=== PATIENT | male | born 1940 | race Caucasian/White ===

== ENCOUNTER 2016-11-22 08:00 | Outpatient (CLI) | payer MEDICARE, OTHER | END 2016-11-22 08:01 | disposition home or self-care (01) | DX: I48.91 Unspecified atrial fibrillation (principal); Z79.01 Long term (current) use of anticoagulants ==

== ENCOUNTER 2016-12-20 07:33 | Outpatient (CLI) | payer MEDICARE, OTHER | END 2016-12-20 07:34 | disposition home or self-care (01) | DX: I48.91 Unspecified atrial fibrillation (principal); Z79.01 Long term (current) use of anticoagulants ==

== ENCOUNTER 2017-01-17 11:05 | Outpatient (CLI) | payer MEDICARE, OTHER | END 2017-01-17 11:06 | disposition home or self-care (01) | DX: E11.9 Type 2 diabetes mellitus without complications (principal); I48.91 Unspecified atrial fibrillation; Z79.01 Long term (current) use of anticoagulants ==

== ENCOUNTER 2017-01-24 08:00 | Outpatient (CLI) | payer MEDICARE, OTHER | END 2017-01-24 08:01 | disposition home or self-care (01) | DX: I48.91 Unspecified atrial fibrillation (principal); Z79.01 Long term (current) use of anticoagulants ==

== ENCOUNTER 2017-02-16 07:34 | Outpatient (CLI) | payer MEDICARE, OTHER | END 2017-02-16 07:35 | disposition home or self-care (01) | DX: I48.91 Unspecified atrial fibrillation (principal); Z79.01 Long term (current) use of anticoagulants ==

== ENCOUNTER 2017-03-16 07:35 | Outpatient (CLI) | payer MEDICARE, OTHER | END 2017-03-16 07:36 | disposition home or self-care (01) | DX: I48.91 Unspecified atrial fibrillation (principal); Z79.01 Long term (current) use of anticoagulants ==

== ENCOUNTER 2017-04-12 07:34 | Outpatient (CLI) | payer MEDICARE, OTHER | END 2017-04-12 07:35 | disposition home or self-care (01) | LOC: LAB.N 07:34 | PROVIDERS: ATTEND Internal Medicine | DX: I48.91 Unspecified atrial fibrillation (principal); Z79.01 Long term (current) use of anticoagulants | CPT/HCPCS: 85610 ==

== ENCOUNTER 2017-05-07 07:46 | Outpatient (CLI) | payer MEDICARE, OTHER ==
[2017-05-07 14:59] LABS: HEMOGLOBIN A1C 0.7 g/dL
== END 2017-05-07 07:47 | disposition home or self-care (01) ==
LOC: LAB.N 07:46
PROVIDERS: ATTEND Internal Medicine
DX: E11.65 Type 2 diabetes mellitus with hyperglycemia (principal); I48.91 Unspecified atrial fibrillation; Z79.01 Long term (current) use of anticoagulants
CPT/HCPCS: 36415; 83036; 85610

== ENCOUNTER 2017-05-29 07:33 | Outpatient (CLI) | payer MEDICARE, OTHER | END 2017-05-29 23:59 | disposition home or self-care (01) | LOC: LAB.N 07:33 | PROVIDERS: ATTEND Internal Medicine | DX: I48.91 Unspecified atrial fibrillation (principal) | CPT/HCPCS: 85610 ==

== ENCOUNTER 2017-06-26 13:11 | Outpatient (CLI) | payer MEDICARE, OTHER | END 2017-06-26 13:12 | disposition home or self-care (01) | LOC: RT 13:11 | PROVIDERS: ATTEND Internal Medicine | DX: R06.00 Dyspnea, unspecified (principal) | CPT/HCPCS: 94010 ==

== ENCOUNTER 2017-06-27 07:30 | Outpatient (CLI) | payer MEDICARE, OTHER | END 2017-06-27 07:31 | LOC: LAB.N 07:30 | PROVIDERS: ATTEND Internal Medicine | DX: I48.91 Unspecified atrial fibrillation (principal); Z79.01 Long term (current) use of anticoagulants | CPT/HCPCS: 85610 ==

== ENCOUNTER 2017-07-03 07:36 | Outpatient (CLI) | payer MEDICARE, OTHER | END 2017-07-03 07:37 | disposition home or self-care (01) | LOC: LAB.N 07:36 | PROVIDERS: ATTEND Internal Medicine | DX: I48.91 Unspecified atrial fibrillation (principal); Z79.01 Long term (current) use of anticoagulants | CPT/HCPCS: 85610 ==

== ENCOUNTER 2017-07-17 20:18 | Outpatient (CLI) | payer MEDICARE, OTHER | END 2017-07-17 20:19 | disposition home or self-care (01) | LOC: LAB.N 20:18 | PROVIDERS: ATTEND Internal Medicine | DX: I48.91 Unspecified atrial fibrillation (principal) | CPT/HCPCS: 85610 ==

== ENCOUNTER 2017-08-02 07:31 | Outpatient (CLI) | payer MEDICARE, OTHER | END 2017-08-02 07:32 | disposition home or self-care (01) | LOC: LAB.N 07:31 | PROVIDERS: ATTEND Internal Medicine | DX: I48.91 Unspecified atrial fibrillation (principal); Z79.01 Long term (current) use of anticoagulants | CPT/HCPCS: 85610 ==

== ENCOUNTER 2017-08-30 15:24 | Outpatient (CLI) | payer MEDICARE, OTHER ==
[2017-08-30 13:24] LABS: BASOPHILS % (AUTO) 0.8 %; EOSINOPHILS # (AUTO) 0.2 10^3/uL (0.0-0.7); EOSINOPHILS % (AUTO) 3.4 %; HCT - HEMATOCRIT 40.6 % (42.0-52.0); HGB - HEMOGLOBIN 14.1 g/dL (14.0-18.0); LYMPHOCYTES # (AUTO) 1.2 10^3/uL (1.5-3.5); LYMPHOCYTES % (AUTO) 21.7 %; MEAN CORPUSCULAR HEMOGLOBIN 30.9 pg (27.0-31.0); MEAN CORPUSCULAR HGB CONC 34.6 g/dL (32.0-36.0); MEAN CORPUSCULAR VOLUME 89.1 fL (80.0-94.0); MEAN PLATELET VOLUME 9.3 fL (7.4-11.4); MONOCYTES # (AUTO) 0.5 10^3/uL (0.0-1.0); MONOCYTES % (AUTO) 8.4 %; NEUTROPHILS # (AUTO) 3.6 10^3/uL (1.5-6.6); NEUTROPHILS % (AUTO) 65.7 %; NUCLEATED RED BLOOD CELLS AUTO 0.1 /100WBC; RED BLOOD COUNT 4.56 10^6/uL (4.70-6.10); RED CELL DISTRIBUTION WIDTH 14.5 % (12.0-15.0); UNCORRECTED WHITE BLOOD COUNT 5.5 x10^3/uL; WHITE BLOOD COUNT 5.5 x10^3/uL (4.8-10.8)
[2017-08-30 14:18] LABS: HEMOGLOBIN A1C 0.87 g/dL
[2017-08-30 14:25] LABS: ALBUMIN/GLOBULIN RATIO 1.9 (1.0-2.2); BILIRUBIN,TOTAL 2.1 mg/dL (0.2-1.0); BUN - BLOOD UREA NITROGEN 33 mg/dL (6-20); CALCIUM 9.6 mg/dL (8.5-10.3); CARBON DIOXIDE - CO2 26 mmol/L (21-32); CHLORIDE 100 mmol/L (101-111); CHOL/HDL RATIO 3.6 (<5.0); CHOLESTEROL 100 mg/dL; CREATININE 1.2 mg/dL (0.6-1.2); GFR - MDRD 59 (>89); GLUCOSE 150 mg/dL (70-100); HDL CHOLESTEROL 28 mg/dL; LDL/HDL RATIO 1.8 (<3.6); POTASSIUM 3.8 mmol/L (3.5-5.0); SODIUM 135 mmol/L (135-145); TOTAL PROTEIN 7.2 g/dL (6.7-8.2); TRIGLYCERIDES 113 mg/dL; VLDL CHOLESTEROL 23 mg/dL
[2017-09-04 07:57] LABS: TEST RESULT REPORT
== END 2017-08-30 15:25 | disposition home or self-care (01) ==
LOC: LAB.N 15:24
PROVIDERS: ATTEND Internal Medicine
DX: Z00.00 Encounter for general adult medical examination without abnormal findings (principal); I25.10 Atherosclerotic heart disease of native coronary artery without angina pectoris; I10 Essential (primary) hypertension; E11.9 Type 2 diabetes mellitus without complications; I48.91 Unspecified atrial fibrillation; Z12.5 Encounter for screening for malignant neoplasm of prostate; R89.9 Unspecified abnormal finding in specimens from other organs, systems and tissues
CPT/HCPCS: 36415; 80053; 80061; 81599; 83036; 84154; 85025; 85610; G0103; 84153

== ENCOUNTER 2017-09-27 07:34 | Outpatient (CLI) | payer MEDICARE, OTHER | END 2017-09-27 07:35 | disposition home or self-care (01) | LOC: LAB.N 07:34 | PROVIDERS: ATTEND Internal Medicine | DX: I48.91 Unspecified atrial fibrillation (principal); Z79.01 Long term (current) use of anticoagulants | CPT/HCPCS: 85610 ==

== ENCOUNTER 2017-10-30 08:00 | Outpatient (CLI) | payer MEDICARE, OTHER | END 2017-10-30 08:01 | disposition home or self-care (01) | LOC: LAB.N 08:00 | PROVIDERS: ATTEND Internal Medicine | DX: I48.91 Unspecified atrial fibrillation (principal); Z79.01 Long term (current) use of anticoagulants | CPT/HCPCS: 85610 ==

== ENCOUNTER 2017-11-14 08:00 | Outpatient (CLI) | payer MEDICARE, OTHER | END 2017-11-14 08:01 | disposition home or self-care (01) | LOC: LAB.N 08:00 | PROVIDERS: ATTEND Internal Medicine | DX: I48.91 Unspecified atrial fibrillation (principal); Z79.01 Long term (current) use of anticoagulants | CPT/HCPCS: 85610 ==

== ENCOUNTER 2018-01-04 10:23 | Outpatient (CLI) | payer MEDICARE, OTHER ==
[2018-01-04 11:16] LABS: HB2 TOTAL 15.2 g/dL; HEMOGLOBIN A1C 0.75 g/dL; HEMOGLOBIN A1C % 6.7 % (4.6-6.2)
== END 2018-01-04 10:24 | disposition home or self-care (01) ==
LOC: LAB 10:23
PROVIDERS: ATTEND Internal Medicine
DX: E11.9 Type 2 diabetes mellitus without complications (principal); I48.91 Unspecified atrial fibrillation; Z79.01 Long term (current) use of anticoagulants
CPT/HCPCS: 36415; 83036; 85610

== ENCOUNTER 2018-01-30 08:00 | Outpatient (CLI) | payer MEDICARE, OTHER | END 2018-01-30 08:01 | disposition home or self-care (01) | LOC: LAB.N 08:00 | PROVIDERS: ATTEND Internal Medicine | DX: I48.91 Unspecified atrial fibrillation (principal); Z79.01 Long term (current) use of anticoagulants | CPT/HCPCS: 85610 ==

== ENCOUNTER 2018-02-22 07:38 | Outpatient (CLI) | payer MEDICARE, OTHER | END 2018-02-22 07:39 | disposition home or self-care (01) | LOC: LAB.N 07:38 | PROVIDERS: ATTEND Internal Medicine | DX: I48.91 Unspecified atrial fibrillation (principal); Z79.01 Long term (current) use of anticoagulants | CPT/HCPCS: 85610 ==

== ENCOUNTER 2018-03-29 14:46 | Outpatient (CLI) | payer MEDICARE, OTHER ==
[2018-03-29 19:17] LABS: HB2 TOTAL 15.2 g/dL; HEMOGLOBIN A1C 0.71 g/dL; HEMOGLOBIN A1C % 6.4 % (4.6-6.2)
== END 2018-03-29 14:47 | disposition home or self-care (01) ==
LOC: LAB.N 14:46
PROVIDERS: ATTEND Internal Medicine
DX: I48.91 Unspecified atrial fibrillation (principal); E11.9 Type 2 diabetes mellitus without complications; Z79.01 Long term (current) use of anticoagulants; Z79.899 Other long term (current) drug therapy
CPT/HCPCS: 36415; 83036; 85610

== ENCOUNTER 2018-04-25 07:35 | Outpatient (CLI) | payer MEDICARE, OTHER | END 2018-04-25 07:36 | disposition home or self-care (01) | LOC: LAB.N 07:35 | PROVIDERS: ATTEND Internal Medicine | DX: I48.91 Unspecified atrial fibrillation (principal); Z79.01 Long term (current) use of anticoagulants | CPT/HCPCS: 85610 ==

== ENCOUNTER 2018-05-23 07:34 | Outpatient (CLI) | payer MEDICARE, OTHER | END 2018-05-23 07:35 | LOC: LAB.N 07:34 | PROVIDERS: ATTEND Internal Medicine | DX: I48.91 Unspecified atrial fibrillation (principal); Z79.01 Long term (current) use of anticoagulants | CPT/HCPCS: 85610 ==

== ENCOUNTER 2018-06-21 07:40 | Outpatient (CLI) | payer MEDICARE, OTHER | END 2018-06-21 07:41 | disposition home or self-care (01) | LOC: LAB.N 07:40 | PROVIDERS: ATTEND Internal Medicine | DX: I48.91 Unspecified atrial fibrillation (principal); Z79.01 Long term (current) use of anticoagulants | CPT/HCPCS: 85610 ==

== ENCOUNTER 2018-07-19 08:00 | Outpatient (CLI) | payer MEDICARE, OTHER | END 2018-07-19 08:01 | disposition home or self-care (01) | LOC: LAB.N 08:00 | PROVIDERS: ATTEND Internal Medicine | DX: I48.91 Unspecified atrial fibrillation (principal); Z79.01 Long term (current) use of anticoagulants | CPT/HCPCS: 85610 ==

== ENCOUNTER 2018-08-15 07:46 | Outpatient (CLI) | payer MEDICARE, OTHER | END 2018-08-15 07:47 | disposition home or self-care (01) | LOC: LAB.N 07:46 | PROVIDERS: ATTEND Internal Medicine | DX: I48.91 Unspecified atrial fibrillation (principal); Z79.01 Long term (current) use of anticoagulants | CPT/HCPCS: 85610 ==

== ENCOUNTER 2018-09-04 07:51 | Outpatient (CLI) | payer MEDICARE, OTHER ==
[2018-09-04 12:52] LABS: BASOPHILS % (AUTO) 0.8 %; EOSINOPHILS # (AUTO) 0.1 10^3/uL (0.0-0.7); EOSINOPHILS % (AUTO) 2.7 %; HGB - HEMOGLOBIN 14.2 g/dL (14.0-18.0); LYMPHOCYTES # (AUTO) 1.1 10^3/uL (1.5-3.5); LYMPHOCYTES % (AUTO) 21.4 %; MEAN CORPUSCULAR HEMOGLOBIN 31.6 pg (27.0-31.0); MEAN CORPUSCULAR HGB CONC 35.3 g/dL (32.0-36.0); MEAN CORPUSCULAR VOLUME 89.5 fL (80.0-94.0); MEAN PLATELET VOLUME 9.4 fL (7.4-11.4); MONOCYTES # (AUTO) 0.4 10^3/uL (0.0-1.0); MONOCYTES % (AUTO) 7.5 %; NEUTROPHILS # (AUTO) 3.5 10^3/uL (1.5-6.6); NEUTROPHILS % (AUTO) 67.6 %; PLT - PLATELET COUNT 172 10^3/uL (130-450); RED CELL DISTRIBUTION WIDTH 13.9 % (12.0-15.0); WHITE BLOOD COUNT 5.2 x10^3/uL (4.8-10.8)
[2018-09-04 13:24] LABS: ALBUMIN 4.5 g/dL (3.2-5.5); ALKALINE PHOSPHATASE 64 IU/L (42-121); ALT ALANINE AMINOTRANSFERASE 37 IU/L (10-60); AST ASPARTATE AMINOTRANSFERASE 33 IU/L (10-42); BILIRUBIN,TOTAL 1.5 mg/dL (0.2-1.0); BUN - BLOOD UREA NITROGEN 32 mg/dL (6-20); CALCIUM 9.4 mg/dL (8.5-10.3); CARBON DIOXIDE - CO2 29 mmol/L (21-32); CHLORIDE 100 mmol/L (101-111); CHOL/HDL RATIO 2.9 (<5.0); CHOLESTEROL 105 mg/dL; GFR - MDRD 72 (>89); GLUCOSE 130 mg/dL (70-100); HDL CHOLESTEROL 36 mg/dL; LDL CHOLESTEROL,CALCULATED 52 mg/dL; LDL/HDL RATIO 1.4 (<3.6); SODIUM 137 mmol/L (135-145); TOTAL PROTEIN 6.8 g/dL (6.7-8.2); VLDL CHOLESTEROL 17 mg/dL
[2018-09-04 13:47] LABS: HB2 TOTAL 14.3 g/dL; HEMOGLOBIN A1C 0.69 g/dL; HEMOGLOBIN A1C % 6.6 % (4.6-6.2)
== END 2018-09-04 07:52 | disposition home or self-care (01) ==
LOC: LAB.N 07:51
PROVIDERS: ATTEND Internal Medicine
DX: R89.9 Unspecified abnormal finding in specimens from other organs, systems and tissues (principal); E11.9 Type 2 diabetes mellitus without complications; Z12.5 Encounter for screening for malignant neoplasm of prostate; I48.91 Unspecified atrial fibrillation; I25.10 Atherosclerotic heart disease of native coronary artery without angina pectoris; I10 Essential (primary) hypertension; Z79.899 Other long term (current) drug therapy
CPT/HCPCS: 36415; 80053; 80061; 83036; 84443; 85025; G0103; 83721; 84153

== ENCOUNTER 2018-09-12 07:32 | Outpatient (CLI) | payer MEDICARE, OTHER | END 2018-09-12 07:33 | disposition home or self-care (01) | LOC: LAB.N 07:32 | PROVIDERS: ATTEND Internal Medicine | DX: I48.91 Unspecified atrial fibrillation (principal); Z79.01 Long term (current) use of anticoagulants | CPT/HCPCS: 85610 ==

== ENCOUNTER 2018-10-09 07:32 | Outpatient (CLI) | payer MEDICARE, OTHER | END 2018-10-09 07:33 | disposition home or self-care (01) | LOC: LAB.N 07:32 | PROVIDERS: ATTEND Internal Medicine | DX: I48.91 Unspecified atrial fibrillation (principal); Z79.01 Long term (current) use of anticoagulants | CPT/HCPCS: 85610 ==

== ENCOUNTER 2018-10-23 08:58 | Outpatient (CLI) | payer MEDICARE, OTHER | END 2018-10-23 23:59 | disposition home or self-care (01) | LOC: LAB.N 08:58 | PROVIDERS: ATTEND Internal Medicine | DX: I48.91 Unspecified atrial fibrillation (principal); Z79.01 Long term (current) use of anticoagulants | CPT/HCPCS: 85610 ==

== ENCOUNTER 2018-10-30 07:37 | Outpatient (CLI) | payer MEDICARE, OTHER | END 2018-10-30 23:59 | disposition home or self-care (01) | LOC: LAB.N 07:37 | PROVIDERS: ATTEND Internal Medicine | DX: I48.91 Unspecified atrial fibrillation (principal); Z79.01 Long term (current) use of anticoagulants | CPT/HCPCS: 85610 ==

== ENCOUNTER 2018-11-27 08:00 | Outpatient (CLI) | payer MEDICARE, OTHER | END 2018-11-27 23:59 | disposition home or self-care (01) | LOC: LAB.N 08:00 | PROVIDERS: ATTEND Internal Medicine | DX: I48.91 Unspecified atrial fibrillation (principal); Z79.01 Long term (current) use of anticoagulants | CPT/HCPCS: 85610 ==

== ENCOUNTER 2018-12-31 09:19 | Outpatient (CLI) | payer MEDICARE, OTHER ==
[2018-12-31 12:29] LABS: HB2 TOTAL 16.5 g/dL; HEMOGLOBIN A1C 0.91 g/dL; HEMOGLOBIN A1C % 7.2 % (4.6-6.2)
== END 2018-12-31 23:59 | disposition home or self-care (01) ==
LOC: LAB.N 09:19
PROVIDERS: ATTEND Internal Medicine
DX: E11.9 Type 2 diabetes mellitus without complications (principal); I48.91 Unspecified atrial fibrillation; Z79.01 Long term (current) use of anticoagulants
CPT/HCPCS: 36415; 83036; 85610

== ENCOUNTER 2019-02-05 08:00 | Outpatient (CLI) | payer MEDICARE, OTHER | END 2019-02-05 23:59 | disposition home or self-care (01) | LOC: LAB.N 08:00 | PROVIDERS: ATTEND Internal Medicine | DX: I48.91 Unspecified atrial fibrillation (principal); Z79.01 Long term (current) use of anticoagulants | CPT/HCPCS: 85610 ==

== ENCOUNTER 2019-02-12 08:00 | Outpatient (CLI) | payer MEDICARE, OTHER | END 2019-02-12 23:59 | disposition home or self-care (01) | LOC: LAB.N 08:00 | PROVIDERS: ATTEND Internal Medicine | DX: I48.91 Unspecified atrial fibrillation (principal); Z79.01 Long term (current) use of anticoagulants | CPT/HCPCS: 85610 ==

== ENCOUNTER 2019-02-19 07:20 | Outpatient (CLI) | payer MEDICARE, OTHER | END 2019-02-19 23:59 | disposition home or self-care (01) | LOC: LAB.N 07:20 | PROVIDERS: ATTEND Internal Medicine | DX: I48.91 Unspecified atrial fibrillation (principal); Z79.01 Long term (current) use of anticoagulants | CPT/HCPCS: 85610 ==

== ENCOUNTER 2019-03-06 07:21 | Outpatient (CLI) | payer MEDICARE, OTHER | END 2019-03-06 23:59 | disposition home or self-care (01) | LOC: LAB.N 07:21 | PROVIDERS: ATTEND Internal Medicine | DX: I48.91 Unspecified atrial fibrillation (principal); Z79.01 Long term (current) use of anticoagulants | CPT/HCPCS: 85610 ==

== ENCOUNTER 2019-04-02 07:15 | Outpatient (CLI) | payer MEDICARE, OTHER | END 2019-04-02 23:59 | disposition home or self-care (01) | LOC: LAB.N 07:15 | PROVIDERS: ATTEND Internal Medicine | DX: I48.91 Unspecified atrial fibrillation (principal); Z79.01 Long term (current) use of anticoagulants | CPT/HCPCS: 85610 ==

== ENCOUNTER 2019-04-29 08:00 | Outpatient (CLI) | payer MEDICARE, OTHER | END 2019-04-29 23:59 | disposition home or self-care (01) | LOC: LAB.N 08:00 | PROVIDERS: ATTEND Internal Medicine | DX: I48.91 Unspecified atrial fibrillation (principal); Z79.01 Long term (current) use of anticoagulants | CPT/HCPCS: 85610 ==

== ENCOUNTER 2020-09-22 19:43 | Outpatient (CLI) | payer MEDICARE, OTHER | END 2020-09-22 19:44 | disposition home or self-care (01) | LOC: COV 19:43 | PROVIDERS: ATTEND Family Medicine | DX: Z20.828 Contact with and (suspected) exposure to other viral communicable diseases (principal) ==

== ENCOUNTER 2021-10-12 10:01 | Day surgery (SDC) | payer MEDICARE, OTHER ==
[2021-10-12] MEDS ORDERED: LACTATED RINGERS 1,000 ML IV ONE (10:55)
[2021-10-12] MEDS ORDERED: PROPOFOL 500 MG/50 ML 500 MG/50 ML VIAL ONE (10:57)
--- NOTE | 2021-10-12 11:41 | ANESTHESIA ---
Pre-Anesthesia VS, & Labs - Diagnosis hx polyps - Procedure colonoscopy Vital Signs: Temp Pulse Resp BP Pulse Ox 36.7 C 60 18 143/63 H 100 10/12/21 10:19 10/12/21 10:19 10/12/21 10:19 10/12/21 10:19 10/12/21 10:19 Height: 5 ft 10 in Weight (kg): 81.3 kg Body Mass Index: 25.7 BMI Classification: Overweight - NPO >8 hours - Lab Results Lab results reviewed: Yes Home Medications and Allergies Home Medications: Ambulatory Orders Calcium Carbonate [Calcium] 600 mg PO DAILY 10/11/21 Cholecalciferol [Vitamin D3] 5,000 unit PO DAILY 10/11/21 Levothyroxine Sodium [Synthroid] 50 mcg PO DAILY 10/11/21 Ubidecarenone/Vit E Acet [Co Q-10 100 mg Softgel] 1 each PO DAILY 10/11/21 Vitamin B Complex 1 each PO DAILY 10/11/21 amLODIPine [Norvasc] 10 mg PO DAILY 10/11/21 metFORMIN [Glucophage] 500 mg PO BIDWM 10/11/21 Aspirin 1 tab ORAL DAILY 11/01/15 Atorvastatin Calcium [Lipitor] 1 tab ORAL DAILY 11/01/15 Losartan [Cozaar] 100 mg ORAL DAILY 11/01/15 Metoprolol Succinate [Toprol Xl] 25 mg ORAL BID 11/01/15 Warfarin [Coumadin] 5 mg ORAL DAILY 11/01/15 hydroCHLOROthiazide [Hydrochlorothiazide] 1 tab ORAL DAILY 11/01/15 Calcium Carbonate [Calcium] 600 mg PO DAILY 10/11/21 Cholecalciferol [Vitamin D3] 5,000 unit PO DAILY 10/11/21 Levothyroxine Sodium [Synthroid] 50 mcg PO DAILY 10/11/21 Ubidecarenone/Vit E Acet [Co Q-10 100 mg Softgel] 1 each PO DAILY 10/11/21 Vitamin B Complex 1 each PO DAILY 10/11/21 amLODIPine [Norvasc] 10 mg PO DAILY 10/11/21 metFORMIN [Glucophage] 500 mg PO BIDWM 10/11/21 Allergies/Adverse Reactions: Allergies Allergy/AdvReac Type Severity Reaction Status Date / Time No Known Drug Allergies Allergy Verified 10/29/15 13:49 Anes History & Medical History - Anesthetic History Anesthesia Complications: reports: No previous complications Family history of Anesthesia Complications: Denies Family history of Malignant Hyperthermia: Denies - Medical History Cardiovascular: reports: Hypertension, High cholesterol, Coronary artery disease, Atrial fibrillation Pulmonary: reports: None Gastrointestinal: reports: Colon polyps Urinary: reports: None Musculoskeletal: reports: Osteoarthritis Endocrine/Autoimmune: reports: None Skin: reports: Eczema - Surgical History General: reports: Colonoscopy Cardiothoracic: reports: Coronary stent Orthopedic: reports: Hip replacement Dermatologic: reports: Other Exam General: Alert, Oriented x3, Cooperative Dental: WNL Mouth Opening: Greater than 4 Fingerbreadths Neck Mobility: Normal Mallampati classification: II Respiratory: Lungs clear, Normal breath sounds, No respiratory distress Cardiovascular: Other (af) Neurological: Normal speech Mental/Cognitive Status: Alert/Oriented X3, Normal for patient Cognitive Status: Within normal limits Plan Anesthesia Type: Total IV Consent for Procedure(s) Verified and Reviewed: Yes Code Status: Attempt Resuscitation ASA classification: 3-Severe systemic disease Is this case an emergency?: No
[2021-10-12] MEDS ORDERED: LIDOCAINE-MPF 2% 5 ML VIAL ONE (11:44)
[2021-10-12] MEDS ORDERED: LACTATED RINGERS 700 ML IV ONE (12:07)
[2021-10-12 12:49] VITALS: BP 138/70
--- NOTE | 2021-10-12 15:35 | ANESTHESIA POST OP EVALUATION ---
Anesthesia Post Eval - Post Anesthesia Eval Vitals: Last Vital Signs Temp 36.3 C L 10/12/21 12:47 Pulse 56 L 10/12/21 12:47 Resp 16 10/12/21 12:47 BP 138/70 H 10/12/21 12:47 Pulse Ox 100 10/12/21 12:47 CV Function Including HR & BP: Stable Pain Control: Satisfactory Nausea & Vomiting: Negative Mental Status: Baseline Respiratory Status: Airway Patent Hydration Status: Satisfactory Anesthesia Complications: None
== END 2021-10-12 10:02 | disposition home or self-care (01) ==
LOC: SDS 10:01
PROVIDERS: ATTEND Surgery
PROC: 0DBN8ZZ Excision of Sigmoid Colon, Via Natural or Artificial Opening Endoscopic (ICD-10-PCS; principal; 2021-10-12 11:15)
DX: Z12.11 Encounter for screening for malignant neoplasm of colon (principal); K63.5 Polyp of colon; K57.30 Diverticulosis of large intestine without perforation or abscess without bleeding; K64.8 Other hemorrhoids; I10 Essential (primary) hypertension; E11.9 Type 2 diabetes mellitus without complications; E78.5 Hyperlipidemia, unspecified; I25.10 Atherosclerotic heart disease of native coronary artery without angina pectoris; I48.91 Unspecified atrial fibrillation; N40.0 Benign prostatic hyperplasia without lower urinary tract symptoms; Z95.5 Presence of coronary angioplasty implant and graft; Z79.82 Long term (current) use of aspirin; Z79.01 Long term (current) use of anticoagulants; Z79.84 Long term (current) use of oral hypoglycemic drugs; Z79.899 Other long term (current) drug therapy
CPT/HCPCS: 45385; J7120

== ENCOUNTER 2023-12-28 11:34 | Outpatient (CLI) | payer MEDICARE, OTHER ==
[2023-12-28 11:50] LABS: ABSOLUTE RETICS # AUTO 0.133 10^6/uL (0.020-0.110); RED BLOOD COUNT 2.78 10^6/uL (4.70-6.10); RETICULOCYTE COUNT % (AUTO) 4.8 % (0.5-2.3)
[2023-12-28 12:20] LABS: THYROID STIMULATING HORMONE 2.22 uIU/mL (0.34-5.60)
== END 2023-12-28 11:35 | disposition home or self-care (01) ==
LOC: LAB 11:34
PROVIDERS: ATTEND Surgery
DX: R71.8 Other abnormality of red blood cells (principal); Z13.820 Encounter for screening for osteoporosis; Z13.21 Encounter for screening for nutritional disorder; Z13.29 Encounter for screening for other suspected endocrine disorder
CPT/HCPCS: 36415; 82607; 82746; 83615; 84443; 85045; 86880

== ENCOUNTER 2024-01-01 22:37 | Outpatient (CLI) | payer MEDICARE, OTHER | END 2024-01-01 22:38 | disposition critical access hospital (66) | LOC: EMS 22:37 | DX: R51.9 Headache, unspecified (principal); H54.61 Unqualified visual loss, right eye, normal vision left eye; R53.1 Weakness; R20.0 Anesthesia of skin; R41.0 Disorientation, unspecified | CPT/HCPCS: A0425; A0429 ==

== ENCOUNTER 2024-01-01 22:57 | Observation (INO) | payer MEDICARE, OTHER ==
[2024-01-01 23:12] LABS: BASOPHILS # (AUTO) 0.1 10^3/uL (0.0-0.1); BASOPHILS % (AUTO) 0.9 %; EOSINOPHILS # (AUTO) 0.2 10^3/uL (0.0-0.7); EOSINOPHILS % (AUTO) 2.4 %; HCT - HEMATOCRIT 30.2 % (42.0-52.0); HGB - HEMOGLOBIN 9.1 g/dL (14.0-18.0); LYMPHOCYTES % (AUTO) 15.3 %; MEAN CORPUSCULAR HEMOGLOBIN 30.7 pg (27.0-31.0); MEAN CORPUSCULAR HGB CONC 30.1 g/dL (32.0-36.0); MEAN PLATELET VOLUME 10.1 fL (7.4-11.4); MONOCYTES # (AUTO) 0.5 10^3/uL (0.0-1.0); MONOCYTES % (AUTO) 6.8 %; NEUTROPHILS # (AUTO) 4.9 10^3/uL (1.5-6.6); NEUTROPHILS % (AUTO) 74.3 %; PLT - PLATELET COUNT 279 10^3/uL (130-450); RED BLOOD COUNT 2.96 10^6/uL (4.70-6.10); RED CELL DISTRIBUTION WIDTH 16.1 % (12.0-15.0); WHITE BLOOD COUNT 6.6 x10^3/uL (4.8-10.8)
[2024-01-01] MEDS ORDERED: iohexoL-300 100 ML VIAL ONE (23:14)
[2024-01-01 23:17] LABS: INR 1.3 (0.8-1.2); PT - PROTHROMBIN TIME 13.5 secs (9.9-12.6)
[2024-01-01] MEDS: iohexoL-300 100 ML VIAL IVP ONE (23:21)
[2024-01-01 23:25] LABS: ALBUMIN 4.3 g/dL (3.2-5.5); ALBUMIN/GLOBULIN RATIO 2.3 (1.0-2.2); CALCIUM 9.8 mg/dL (8.5-10.3); CREATININE 1.2 mg/dL (0.6-1.3); POTASSIUM 4.1 mmol/L (3.5-4.5); TOTAL PROTEIN 6.2 g/dL (6.4-8.9)
--- NOTE | 2024-01-01 23:31 | CT Report ---
PROCEDURE: Head W/O Stroke Protocol INDICATIONS: R sided headache/vision loss/leg weakness TECHNIQUE: Noncontrast 4.5 mm thick angled axial sections acquired from the foramen magnum to the vertex, with c oronal reformats. For radiation dose reduction, the following was used: automated exposure control, adjustment of mA and/or kV according to patient size. COMPARISON: None. FINDINGS: Image quality: Diagnostic. CSF spaces: Basal cisterns are patent. No extra-axial fluid collections. Ventricles are normal in size and shape. Brain: No midline shift. No intracranial masses or hemorrhage. Terry-white matter interface is norm al. Skull and face: Calvarium and visualized facial bones are intact, without suspicious lesions. Sinuses: Visualized sinuses and mastoids are clear. IMPRESSION: No acute intracranial process. Findings were discussed with ordering ED provider at 11:29 PM PST on 01/01/2024. This study fulfills neurological imaging criteria for inclusion or exclusion of acute stroke therapie s based on available published neurological imaging guidelines. Reviewed by: Ramila Chaidez MD on 01/01/2024 11:30 PM PST Approved by: Ramila Chaidez MD on 01/01/2024 11:30 PM PST Station ID: [id number]
--- NOTE | 2024-01-01 23:31 | CT Report ---
PROCEDURE: Angio Head/Neck INDICATIONS: R sided headache/weakness TECHNIQUE: After the administration of intravenous contrast, 1 mm thick sections acquired from the aortic arch t hrough the [place]. 3-dimensional ifrczbg-vxdvrkfnq-ddqepzetki (MIP) and/or volume renderin g reformats were acquired of the central intracranial vasculature and neck separately. For radiation dose reduction, the following was used: automated exposure control, adjustment of mA and/or kV acco rding to patient size. CONTRAST: 80mL Omni 300 COMPARISON: Noncontrast CT head 01/01/2024. FINDINGS: Image quality: Diagnostic. HEAD CT: CSF Spaces: Basal cisterns are patent. No extra-axial fluid collections. Ventricles are normal in size and shape. Brain: No significant abnormality is seen for scanning technique. See separately dictated noncontra st CT head obtained concurrently. Skull and face: Calvarium and visualized facial bones appear intact, without suspicious lesions. Sinuses: Visualized sinuses and mastoids are clear. HEAD CT ANGIOGRAPHY: Anterior circulation: Intracranial internal carotid arteries are normal in size and flow. The flow within the paired anterior cerebral arteries is normal and symmetric. The flow within the middle cer ebral arteries is normal and symmetric. The anterior communicating artery is seen. No aneurysms are seen. Posterior circulation: Visualized portions of the vertebral arteries demonstrate normal caliber. Rig ht vertebral artery terminates in the PICA. Flow within the posterior cerebral arteries is normal an d symmetric. No aneurysms are seen. NECK CT ANGIOGRAPHY: Carotid system: The great vessels demonstrate a conventional anatomy as they arise from the aortic a rch. The origins of the common carotid arteries appear patent. The common carotid arteries demonstr ate normal caliber and courses. The bifurcation regions are calcified without significant flow-limit ing stenosis. The internal carotid arteries demonstrate normal calibers and courses. Posterior circulation: The origins of the vertebral arteries both appear widely patent. The more choudhury perior extracranial portions of both vertebral arteries also demonstrate normal courses and calibers. They join to form a normal appearing basilar artery. Soft tissues: Visualized neck soft tissues demonstrate no suspicious abnormalities. Bones: No suspicious bony lesions. Visualized cervical spine appears normally aligned. IMPRESSION: No significant intracranial abnormality visualized. No significant abnormality visualized within the arteries of the neck. The estimate of stenosis included in the report of the imaging study was calculated using the NASCET method Reviewed by: Ramila Chaidez MD on 01/01/2024 11:30 PM PST Approved by: Ramila Chaidez MD on 01/01/2024 11:30 PM PST Station ID: [id number]
--- NOTE | 2024-01-01 23:55 | ED Physician Documentation ---
PD HPI FOCAL NEURO - Stated complaint Stated Complaint: CODE STROKE - Chief complaint Chief Complaint: Neuro - History obtained from History obtained from: Patient - Additional information Additional information: Patient is an 83-year-old male with a history of atrial fibrillation presenting for evaluation of headache, right peripheral vision loss, right leg weakness This evening. Patient's last normal was 2129. Symptoms were noted short time thereafter. Patient was recently taken off of his aspirin and Xarelto approximately 5 days ago. He is being evaluated for new anemia and is scheduled to meet with a general surgeon tomorrow to discuss having scopes done. His primary care took him off of the aspirin and Xarelto in the event that Dr. Beard (general surgeon) could work him into his schedule sooner than January for scopes which is what he is currently scheduled for.EMS did appreciate weakness in the leg with patient having difficulty and ambulating which is not normal for him. On arrival here patient states that his symptoms have mostly resolved other than some mild blurriness on the periphery of the right eye. Denies any changes to vision on the left eye.EMS noted systolic blood pressure in the 180s. Review of Systems Constitutional: denies: Fever Cardiac: denies: Chest pain / pressure Respiratory: denies: Dyspnea GI: denies: Abdominal Pain : denies: Dysuria Neurologic: reports: Headache PD PAST MEDICAL HISTORY - Past Medical History Cardiovascular: Hypertension, High cholesterol, Coronary artery disease, Atrial fibrillation Respiratory: None Endocrine/Autoimmune: Type 2 diabetes GI: Colon polyps : None HEENT: None Psych: None Musculoskeletal: Osteoarthritis Derm: Eczema - Past Surgical History Past Surgical History: Yes General: Colonoscopy Ortho: Hip replacement Cardiovascular: Coronary stent Derm: Other - Present Medications Home Medications: Ambulatory Orders Medication Instructions Recorded Confirmed Losartan [Cozaar] 100 mg ORAL DAILY 11/01/15 10/30/16 hydroCHLOROthiazide 1 tab ORAL DAILY 11/01/15 10/30/16 [Hydrochlorothiazide] Calcium Carbonate [Calcium] 500 mg PO DAILY 10/11/21 10/11/21 Cholecalciferol [Vitamin D3] 6,000 unit PO DAILY 10/11/21 10/11/21 Levothyroxine Sodium [Synthroid] 50 mcg PO DAILY 10/11/21 10/11/21 Vitamin B Complex 1 each PO DAILY 10/11/21 01/02/24 metFORMIN [Glucophage] 1,000 mg PO BIDWM 10/11/21 10/11/21 Rosuvastatin Calcium [Crestor] 1 tab PO DAILY PM 01/02/24 01/02/24 - Allergies Allergies/Adverse Reactions: Allergies Allergy/AdvReac Type Severity Reaction Status Date / Time lisinopril Allergy Unknown Verified 01/01/24 23:20 - Social History Does the pt smoke?: No Smoking Status: Never smoker Does the pt drink ETOH?: Yes PD ED PE NORMAL - General General: Alert and oriented X 3, No acute distress, Well developed/nourished - HEENT HEENT: Atraumatic, PERRL, EOMI, Moist mucous membranes, Pharynx benign - Neck Neck: Supple, no meningeal sign - Cardiac Cardiac: Other (Irregularly irregular, normal rate) - Respiratory Respiratory: No respiratory distress, Clear bilaterally - Abdomen Abdomen: Normal bowel sounds, Soft, Non tender, Non distended - Derm Derm: Warm and dry - Extremities Extremities: No deformity - Neuro Neuro: Alert and oriented X 3, 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, No motor deficit, No sensory deficit, Normal speech NIHSS - Level of Consciousness Level of consciousness: (0) Alert, Keenly responsive LOC Questions: (0) Answers both Q's correct LOC Commands: (0) Performs both correctly - Gaze Best Gaze: (0) Normal - Visual Visual: (0) No loss - Facial Palsy Facial Palsy: (0) Normal, symmetrical movement - Motor Arms (both separate) Motor Arm (right): (0) No drift Motor Arm (left): (0) No drift - Motor Legs (both separate) Motor Leg (right): (0) No drift Motor Leg (left): (0) No drift - Limb Ataxia Limb Ataxia: (0) Absent - Sensory Sensory: (0) Normal - Best Language Best Language: (0) No aphasia - Dysarthria Dysarthria: (0) Normal - Extinction and Inattention (formally neg Extinction and inattention: (0) No abnormality - Total Score/Results Total Score/Result: 0 Results - Vitals Vitals: Vital Signs - 24 hr 01/01/24 01/01/24 01/02/24 23:01 23:49 00:19 Temperature 36.7 C Heart Rate 77 74 72 Respiratory 15 16 16 Rate Blood Pressure 176/76 H 150/70 H 138/69 H O2 Saturation 100 100 100 Oxygen O2 Source Room air - EKG (time done) 2312 EKG releavant findings:: EKG personally interpreted by author of this note. Relevant findings are: Rate 82, atrial fibrillation, PVC, no STEMI - Labs Labs: Laboratory Tests 01/01/24 01/01/24 01/01/24 22:57 22:57 22:57 WBC 6.6 RBC 2.96 L Hgb 9.1 L Hct 30.2 L MCV 102.0 H MCH 30.7 MCHC 30.1 L RDW 16.1 H Plt Count 279 MPV 10.1 Neut # (Auto) 4.9 Lymph # (Auto) 1.0 L Hodgeman # (Auto) 0.5 Eos # (Auto) 0.2 Baso # (Auto) 0.1 Absolute Nucleated RBC 0.00 Nucleated RBC % 0.0 PT 13.5 H INR 1.3 H Sodium 136 Potassium 4.1 Chloride 102 Carbon Dioxide 25 Anion Gap 9.0 BUN 23 H Creatinine 1.2 Estimated GFR (MDRD) 58 L Glucose 239 H Calcium 9.8 Total Bilirubin 1.0 AST 16 ALT 12 Alkaline Phosphatase 65 Total Protein 6.2 L Albumin 4.3 Globulin 1.9 L Albumin/Globulin Ratio 2.3 H Lipase 37 PD Medical Decision Making - ED course Complexity details: reviewed results, re-evaluated patient, d/w patient, d/w family ED course: Patient is an 83-year-old male presenting for evaluation of right-sided headache along with right peripheral visual deficits and right leg weakness. Patient does have a history of A-fib and it was told to hold his aspirin and Eliquis 5 days ago in anticipation of a consultation with general surgeon, Dr. Beard tomorrow afternoon at 3:00 to discuss having a colonoscopy for workup of anemia. PCP had held these medications in case a procedure is able to be done sooner than when it is currently scheduled which is January. On arrival here patient's deficits have resolved. CT head is negative for hemorrhage. Angios are negative for large vessel occlusion. In discussion with tele stroke they do not feel he is a TNK candidate. They also recommend not restarting the aspirin or Xarelto at this time until it is clear as to what workup he will need for his anemia. Patient is in A-fib here. A CBC and chemistries were obtained and reviewed - Hemoglobin of 9.1. Prior labs are from 2018.Discussed with telehospitalist will admit for further management. 1045 - Discussed with Dr. Man, telestroke. She does not recommend thrombolytic at this time Given his rapidly improving symptoms as well as And being worked up for new anemia. Does not see a large vessel occlusion On CT angios. Recommends admission for stroke workup to include MRI and echo. Does not recommend aspirin or a blood thinner at this time. Departure - Departure Disposition: ED Place in Observation Clinical Impression: TIA (transient ischemic attack), Atrial fibrillation Condition: Stable Discharge Date/Time: 01/02/24 01:22
[2024-01-02] MEDS ORDERED: SODIUM CHLORIDE FLUSH 0.9% 10 ML SYRINGE IVP PRN (00:22)
[2024-01-02] MEDS ORDERED: ONDANSETRON 4 MG/2 ML VIAL IVP PRN (00:22)
[2024-01-02] MEDS ORDERED: LABETALOL 20 MG/4 ML SYRINGE IVP PRN (00:31)
[2024-01-02] MEDS ORDERED: ROSUVASTATIN CALCIUM 5 MG PO SCH (00:45)
--- NOTE | 2024-01-02 00:48 | HISTORY & PHYSICAL EXAMINATION ---
Chief Complaint - Chief Complaint Chief Complaint: headache, vision deficit, right sided weakness History of Present Illness - Admitted From Admitted From:: ED - History Obtained From Records Reviewed: EMR History obtained from: Patient, , and ED staff Exam Limitations: tele medicine - History of Present Illness HPI Comment/Other: 83M c Atrial fibrillation, HTN, HLD, DM2 who presents to the ED reporting vision deficit, right sided weakness, and right sided headache. Patient reports taking a nap after arriving home from a meeting. He noted when awaken around 2100 that he had sudden right sided vision blurriness. He attempted to get up from his nap and noted right leg weakness. Patient was confused as well per . EMS was called and patient was brought into the ED. Around the time of arrival to the ED, patient reports developing a right sided headache. Currently, weakness has resolved but he still notices slight right sided blurriness and headache. Patient mentions stopping his asa and Xarelto for anemia workup. His pcp wanted him off in hopes that he can get a colonoscopy sooner than later. Patient reports a 2 gram drop from baseline however no over melena or hematochezia noted. No NSAID abuse. He has been off his asa and Xarelto for x 5 days. Here in the ED, CT brain and CTA head negative. ED staff reports d/w tele neurologist who DOES NOT recommend TNK. Furthermore, ED staff also reports tele neurologist DOES NOT recommend restarting either Xarelto or asa until potential of GI bleed is worked up. Hospital Medicine reconfirmed with ED staff that Tele Neurologist DOES NOT recommend at this time restart asa or Xarelto. History - Past Medical History Cardiovascular: reports: Hypertension, High cholesterol, Coronary artery disease, Atrial fibrillation Respiratory: reports: None Endocrine/Autoimmune: reports: Type 2 diabetes GI: reports: Colon polyps : reports: None HEENT: reports: None Psych: reports: None Musculoskeletal: reports: Osteoarthritis Derm: reports: Eczema MRSA Hx?: No - Past Surgical History General: reports: Colonoscopy Ortho: reports: Hip replacement Cardiovascular: reports: Coronary stent Derm: reports: Other Meds/Allgy - Home Medications Home Medications: Ambulatory Orders Medication Instructions Recorded Confirmed Losartan [Cozaar] 100 mg ORAL DAILY 11/01/15 10/30/16 hydroCHLOROthiazide 1 tab ORAL DAILY 12/14/15 12/12/16 [Hydrochlorothiazide] Calcium Carbonate [Calcium] 500 mg PO DAILY 10/11/21 10/11/21 Cholecalciferol [Vitamin D3] 6,000 unit PO DAILY 10/11/21 10/11/21 Levothyroxine Sodium [Synthroid] 50 mcg PO DAILY 10/11/21 10/11/21 Vitamin B Complex 1 each PO DAILY 10/11/21 01/02/24 metFORMIN [Glucophage] 1,000 mg PO BIDWM 10/11/21 10/11/21 Rosuvastatin Calcium [Crestor] 1 tab PO DAILY PM 01/02/24 01/02/24 - Allergies Allergies/Adverse Reactions: Allergies Allergy/AdvReac Type Severity Reaction Status Date / Time lisinopril Allergy Unknown Verified 01/01/24 23:20 Review of Systems - Constitutional Constitutional: reports: Fatigue. denies: Fever - Eyes Eyes: reports: Blurred vision - Ears, Nose & Throat Ears, Nose & Throat: denies: Vertigo - Cardiovascular Cariovascular: denies: Palpitations, Chest pain - Respiratory Respiratory: denies: Cough, SOB at rest - Musculoskeletal Musculoskeletal: reports: Muscle weakness (right sided) Exam - Vital Signs Reviewed Vital Signs: Yes Vital Signs: Vital Signs x48h Temp Pulse Resp BP Pulse Ox 01/01/24 23:01 36.7 C 77 15 176/76 H 100 - Physical Exam General Appearance: positive: No acute distress Eyes Bilateral: positive: Normal inspection ENT: positive: ENT inspection nml Neck: positive: Nml inspection Skin: positive: Color nml Extremities: positive: Full ROM, Nml appearance Conclusion/Plan - Problem List (1) TIA (transient ischemic attack) Conclusion/Plan: sxs consistent with TIA vs CVA. ddx: migraine headache with somatization. stroke protocol. permissive hypertension. NIH check. hold asa and Xarelto as per tele neurology recommendation. highly recommend revisiting hold antiplts therapy again when MRI results available. followup am labs. echo. carotids US. restart statin therapy (2) HTN (hypertension) Conclusion/Plan: managed. hold home antihypertensive while ruling out stroke. permissive hypertension for the currently time being. prn labetalol per stroke protocol. monitor blood pressure c repeat vital checks. (3) HLD (hyperlipidemia) Conclusion/Plan: managed. continue home statin therapy. (4) DM2 (diabetes mellitus, type 2) Conclusion/Plan: hold home metformin. manage with ssi. monitor c accuchecks (5) Atrial fibrillation Conclusion/Plan: rate controlled without rate medication. consider beta anne if need rate management. monitor HR c tele monitoring. hold anticoagulation 2/2 anemia and possible GI bleed. if MRI negative, consider d/w gen surgery about inpatient endoscopy so patient can safely restart asa and Xarelto (6) Anemia Conclusion/Plan: noted anemia. unclear source. if MRI negative, consider reaching out to gen surgery for inpatient endoscopy so can safely restart asa and Xarelto. - Lab Results Lab results reviewed: Yes Fish Bones: 01/01/24 22:57 01/01/24 22:57 - Diagnostic Imaging Results Diagnostic Imaging Results: positive: Final report reviewed Core Measures - Anticipated LOS I expect patient to be DC'd or transferred within 96 hours.: Yes - Issues Hospital Issues and Management Plan: The patient consented to receive this telemedicine service, which I performed via live two-way audiovisual equipment. The patient is at ([facility]) and I am physically in [facility]. - DVT/VTE - Prophylaxis VTE/DVT Device ordered at admit?: Yes Telemedicine Consult Details - Provider Location & Consult Time Telemedicine consultation conducted via videoconferencing?: Yes List names and roles of persons who participated in consult:: MARKELL garsia, patient, & Telemedicine provider location:: [facility] Time Telemedicine consult began:: 00:07 Time Telemedicine consult completed:: 01:07
[2024-01-02] MEDS: ACETAMINOPHEN 325 MG TABLET PO PRN (01:55)
[2024-01-02] MEDS: SODIUM CHLORIDE FLUSH 0.9% 10 ML SYRINGE IVP SCH (02:43)
[2024-01-02] MEDS: BACITRACIN ZINC OINT 1 PACKET TOP PRN (02:44)
[2024-01-02 05:02] LABS: BASOPHILS # (AUTO) 0.1 10^3/uL (0.0-0.1); BASOPHILS % (AUTO) 0.8 %; EOSINOPHILS # (AUTO) 0.1 10^3/uL (0.0-0.7); EOSINOPHILS % (AUTO) 2.1 %; HCT - HEMATOCRIT 28.1 % (42.0-52.0); HGB - HEMOGLOBIN 8.6 g/dL (14.0-18.0); LYMPHOCYTES % (AUTO) 14.6 %; MEAN CORPUSCULAR HEMOGLOBIN 31.3 pg (27.0-31.0); MEAN CORPUSCULAR HGB CONC 30.6 g/dL (32.0-36.0); MEAN CORPUSCULAR VOLUME 102.2 fL (80.0-94.0); MEAN PLATELET VOLUME 10.2 fL (7.4-11.4); MONOCYTES # (AUTO) 0.6 10^3/uL (0.0-1.0); MONOCYTES % (AUTO) 8.6 %; NEUTROPHILS # (AUTO) 4.9 10^3/uL (1.5-6.6); NEUTROPHILS % (AUTO) 73.6 %; PLT - PLATELET COUNT 236 10^3/uL (130-450); RED BLOOD COUNT 2.75 10^6/uL (4.70-6.10); RED CELL DISTRIBUTION WIDTH 16.4 % (12.0-15.0); WHITE BLOOD COUNT 6.7 x10^3/uL (4.8-10.8)
[2024-01-02 05:23] LABS: ALBUMIN/GLOBULIN RATIO 2.4 (1.0-2.2); BILIRUBIN,TOTAL 0.8 mg/dL (0.2-1.0); CALCIUM 9.5 mg/dL (8.5-10.3); CREATININE 1.2 mg/dL (0.6-1.3); POTASSIUM 4.2 mmol/L (3.5-4.5); TOTAL PROTEIN 5.7 g/dL (6.4-8.9)
[2024-01-02 05:25] LABS: INR 1.3 (0.8-1.2); PT - PROTHROMBIN TIME 13.5 secs (9.9-12.6)
[2024-01-02 05:30] LABS: TROPONIN I HIGH SENSITIVITY 22.9 ng/L (2.3-19.7)
[2024-01-02] MEDS: LEVOTHYROXINE 25 MCG TABLET PO SCH (06:37)
[2024-01-02] MEDS: INSULIN REGULAR HUMAN 300 UNIT/3 ML VIAL SUBQ SCH (08:37)
[2024-01-02] MEDS ORDERED: NON FORMULARY MED (Levothyroxine Sodium [Synthroid] 50 MCG Tablet) PO SCH (09:00)
--- NOTE | 2024-01-02 09:16 | PHARMACY PROGRESS NOTE ---
- Best Possible Medication History Admit Date and Time: 01/02/24 0022 Processed by: Nursing Medication History completed: Yes Patient Interview: Completed Secondary Source(s): Pharmacy records, Insurance records (ASA AND XARELTO DISCONTINUED PER PATIENT FOR ANEMIA WORKUP) As the person ultimately responsible for medication therapy, providers are able to order a medication from an existing home medication list in [facility] via the "Reconcile Routine" prior to Confirmation of that medication by senior safety support manager. Such practice is discouraged except when the physician, in their clinical judgment, deems that a medical need exists for a medication without regard to previous use.
--- NOTE | 2024-01-02 13:18 | HISTORY & PHYSICAL EXAMINATION ---
Chief Complaint - Chief Complaint Chief Complaint: GA, vision loss, leg weakness <Akash Evans - Last Filed: 01/02/24 18:54> History of Present Illness - Admitted From Admitted From:: ED - History Obtained From Records Reviewed: Yes History obtained from: ED notes <Akash Evans - Last Filed: 01/02/24 18:54> - History of Present Illness HPI Comment/Other: 83 YOM with a Hx of Afib, HTN, HLD, DM2 presents to the ER with R sided GA, Right eye blurred vision, right leg weakness first noted yesterday evening. Pt had gotten home from a meeting at around 2130, states he sat down for a short while and a short while after felt a GA on the right side, as well as some right side blurriness, then when he went to get up his right leg felt weak which is abnormal for him. In ED his weakness and GA resolved but continued to have slight GA and some blurry vision. No recent injury or falls. No Hx of stroke in the past. He reports that he has been off of his daily ASA 81mg and Xarelto for the past 5 days because he is suppose to have a scope done soon, gen surgeon has it scheduled in january but hoping to get him in sooner. Pt reports some fatigue sx for the past couple weeks now, PCP started him on iron supplement. He also states his stool has been darker lately, denies coffee or bright red in appearance. No recent fever, chills, CP, SOB, abd pain. Pt has had nml brain CT and CTA of head and neck. MRI ordered. (Akash Evans) History - Past Medical History Cardiovascular: reports: Hypertension, High cholesterol, Coronary artery disease, Atrial fibrillation Respiratory: reports: None Neuro: reports: Peripheral neuropathy Endocrine/Autoimmune: reports: Type 2 diabetes, HyPOthyroidism GI: reports: Colon polyps, Hemorrhoids : reports: Benign prostate hypertrophy, Kidney stones HEENT: reports: None Psych: reports: None Musculoskeletal: reports: Osteoarthritis, Other Derm: reports: None MRSA Hx?: No Other Past Medical History: plantar fasciitis on the right foot - Past Surgical History General: reports: Colonoscopy Ortho: reports: Hip replacement Cardiovascular: reports: Coronary stent Derm: reports: Skin cancer surgery, Other - Family & Social History Living arrangement: At home Living Situation: With spouse/s.o. - Substance History Use: Uses substance without health or social issues: Alcohol <Akash Evans - Last Filed: 01/02/24 18:54> Meds/Allgy <Akash Evans - Last Filed: 01/02/24 18:54> <LyndonanayaForrest - Last Filed: 01/02/24 19:49> - Home Medications Home Medications: Ambulatory Orders Medication Instructions Recorded Confirmed Losartan [Cozaar] 100 mg ORAL DAILY 11/01/15 01/02/24 hydroCHLOROthiazide 25 mg ORAL DAILY 11/01/15 01/02/24 [Hydrochlorothiazide] Calcium Carbonate [Calcium] 500 mg PO QPM 10/11/21 01/02/24 Cholecalciferol [Vitamin D3] 6,000 unit PO DAILY 10/11/21 01/02/24 Levothyroxine Sodium [Synthroid] 50 mcg PO DAILY 10/11/21 01/02/24 Vitamin B Complex 1 each PO DAILY 10/11/21 01/02/24 metFORMIN [Glucophage] 1,000 mg PO BIDWM 10/11/21 01/02/24 Aspirin EC [Ecotrin] 81 mg PO DAILY 01/02/24 01/02/24 Rivaroxaban [Xarelto] 20 mg PO HS 01/02/24 01/02/24 Rosuvastatin Calcium [Crestor] 5 mg PO DAILY PM 01/02/24 01/02/24 - Allergies Allergies/Adverse Reactions: Allergies Allergy/AdvReac Type Severity Reaction Status Date / Time lisinopril Allergy Unknown Verified 01/01/24 23:20 Review of Systems - Constitutional Constitutional: denies: Fever, Chills - Cardiovascular Cariovascular: denies: Chest pain - Respiratory Respiratory: denies: Cough, SOB at rest - Genitourinary Genitourinary: denies: Dysuria - Neurological Neurological: reports: Focal weakness, Headache <Akash Evans - Last Filed: 01/02/24 18:54> Exam - Physical Exam General Appearance: positive: No acute distress Eyes Bilateral: positive: PERRL, EOMI ENT: positive: ENT inspection nml Neck: positive: Nml inspection, No JVD Respiratory: positive: Chest non-tender, No respiratory distress, Breath sounds nml Cardiovascular: positive: Regular rate & rhythm, No murmur Peripheral Pulses: positive: 2+ Abdomen: positive: Non-tender, Other (Reports non tender hernia left side of a bd.) Back: positive: Nml inspection, CVA tenderness (R) Skin: positive: Color nml, No rash, Warm, Dry Extremities: positive: No pedal edema Neurologic/Psychiatric: positive: Oriented x3, Motor nml, Sensation nml, Mood/affect nml <Akash Evans - Last Filed: 01/02/24 18:54> - Vital Signs Vital Signs: Vital Signs x48h Temp Pulse Resp BP Pulse Ox 01/02/24 16:11 36.7 C 69 16 138/88 H 100 01/02/24 12:38 36.9 C 59 L 16 146/66 H 96 Conclusion/Plan - Problem List (1) Stroke Conclusion/Plan: Pt admitted for right sided GA, blurry vision and leg weakness. Considering TIA vs CVA vs migraine. CT of brain and CTA of head and neck showed no acute changes. No signs of a hemorrhagic or ischemic stroke. MRI of brain shows subacute infarction involving left [employer] territory. MRA shows no significant intra cranial abnormality. No significant abnormality seen where left [employer] infarction is. Trans thoracic echo results pending. Plan: - 01-01-[address] Santana recommended follow up labs, echo, carotid US. (2) Anemia Conclusion/Plan: Dr. Morgan (gen surg) came and told pt he had macrocytic anemia. Labs 01-02-24 RBC 2.75, Hgb 8.1, MCV 102.2 RDH 16.4, PT 13.5, INR 1.3. Pt is waiting to be scheduled to have endoscopy done to restart ASA 81 mg and xarelto 20mg. Pt denies any CP, SOB, weakness. Plan: -Check thiamin level. -Informed pt to avoid alcoholic drinks for now. -Take multi vitamin which should have Folate and vitamin B12. (3) Atrial fibrillation Conclusion/Plan: Pt found to be in A-fib in ER. Rate controlled w/o rate meds. Consider BB, restarting coags if stroke w/u is neg. (4) HTN (hypertension) Conclusion/Plan: Being managed. Dr. Santana recommends holding HTN meds until stroke is ruled out. As needed labetolol per stroke protocol. Monitor vitals. (5) HLD (hyperlipidemia) Conclusion/Plan: Being managed with Rosuvastatin 5mg PO. Recommend continuing. (6) DM2 (diabetes mellitus, type 2) Conclusion/Plan: Taking metformin 1,000mg BID - Lab Results Lab results reviewed: Yes Fish Bones: 01/02/24 04:34 01/02/24 04:34 <Akash Evans - Last Filed: 01/02/24 18:54> - Lab Results Fish Bones: 01/02/24 04:34 01/02/24 04:34 <Forrest Mccoy - Last Filed: 01/02/24 19:49>
--- NOTE | 2024-01-02 13:44 | MRI Report ---
PROCEDURE: Brain WO INDICATIONS: Please evaluate for stroke TECHNIQUE: Noncontrast axial T1 spin echo, axial T2 fast spin echo, sagittal and axial FLAIR, coronal T2 fast sp in echo, axial gradient echo, axial diffusion and ADC through the brain. COMPARISON: Correlation is made with the accompanying brain MRI angiogram. Correlation is also made with CT examinations, 01/01/2024. FINDINGS: Image quality: Excellent. CSF Spaces: Basal cisterns are patent. No extra-axial fluid collections. Ventricles are normal in size and shape. Brain: A broad area of abnormal diffusion-weighted signal can be seen throughout the left LAUNDRY TECH territ ory, with associated dark signal on ADC map. There is developing T2-weighted signal seen within this region. No intracranial masses or hemorrhage. Terry/white matter interface is normal. Brainstem appears norm al. No chronic ischemic insults. Normal intravascular flow voids are present. Age-appropriate brain parenchymal volume loss and chronic small vessel ischemic change can be seen. Skull and face: Calvarium has normal marrow signal. Orbits appear normal. Sinuses: Sinuses and mastoids are clear. IMPRESSION: Subacute infarction seen involving the left LAUNDRY TECH territory. Reviewed by: Jarred Hodges MD on 01/02/2024 12:42 PM [place] Approved by: Jarred Hodges MD on 01/02/2024 12:[address] [facility] Station ID: [id number]
--- NOTE | 2024-01-02 13:45 | MRI Report ---
PROCEDURE: Angio Head WO INDICATIONS: stroke workup TECHNIQUE: Noncontrast axial 3-D [id number] MR angiogram, with 3-dimensional maximum intensity projection (M IP) reformats of the internal carotid arteries and posterior circulation then performed. COMPARISON: Correlation is made with the accompanying brain MRI as well as the CT examinations perfo ed 01/01/2014. FINDINGS: Image quality: Motion artifact is noted. Anterior circulation: Intracranial internal carotid arteries demonstrate normal size and intralumina l flow signal. Recommended diminutive left The flow within the paired anterior cerebral arteries is otherwise normal and symmetric. The flow within the middle cerebral arteries is normal and symmetric . The anterior communicating artery is seen. No stenoses, occlusions, or aneurysms. Posterior circulation: Visualized portions of the vertebral arteries demonstrate normal caliber, and join to form a normal appearing basilar artery. The flow within the posterior cerebral arteries is normal and symmetric. No stenoses, occlusions, or aneurysms. IMPRESSION: No significant intracranial arterial abnormality is seen. No significant abnormality can be seen involving the left posterior cerebral artery, where there is a subacute infarction present. Reviewed by: Jarred Hodges MD on 01/02/2024 12:44 PM [facility] Approved by: Jarred Hodges MD on 01/02/2024 12:44 PM [facility] Station ID: [id number]
[2024-01-02] MEDS: metFORMIN 500 MG TABLET PO SCH (19:09)
[2024-01-02] MEDS: ATORVASTATIN 10 MG TABLET PO SCH (22:21)
[2024-01-03 07:33] LABS: ABSOLUTE RETICS # AUTO 0.169 10^6/uL (0.020-0.110); RED BLOOD COUNT 2.89 10^6/uL (4.70-6.10); RETICULOCYTE COUNT % (AUTO) 5.83 % (0.5-2.3)
[2024-01-03 08:06] LABS: % IRON SATURATION 5 % (20-50); IRON 24 ug/dL (50-212); TOTAL IRON BINDING CAPACITY 447 ug/dL (250-450); TRANSFERRIN 319 mg/dL (203-362)
[2024-01-03 08:25] VITALS: O2SAT 96
[2024-01-03] MEDS: ASPIRIN EC 81 MG TABLET PO SCH (08:27)
--- NOTE | 2024-01-03 11:16 | PROVIDER PROGRESS NOTE ---
Subjective - Prog Note Date Prog Note Date: 01/03/24 Prog Note Time: 11:00 - Subjective Pt reports feeling: Improved Subjective: Pt is alert and oriented, conversing, reports lingering right frontal GA that is unchanged from yesterday. states that he still appears a bit sluggish compared to his baseline. Objective - Vital Signs/Intake & Output Vital Signs: Vital Signs x48h Temp Pulse Resp BP Pulse Ox 01/03/24 08:22 37.2 C 76 18 117/52 L 96 01/03/24 05:28 36.8 C 89 18 132/73 H 93 Intake & Output: Intake & Output 12/31/23 01/01/24 01/02/24 01/03/24 23:59 23:59 23:59 23:59 Intake Total 1660 240 Output Total 1550 Balance 110 240 - Objective General Appearance: positive: No acute distress, Alert Eyes Bilateral: positive: EOMI, No lid inflammation, No scleral icterus, Other (Right eye lid mildly dropped but is baseline) ENT: positive: ENT inspection nml Neck: positive: Nml inspection Respiratory: positive: Chest non-tender, No respiratory distress - Lab Results Fish Bones: 01/02/24 04:34 01/02/24 04:34 Other Labs: Lab Results x24hrs 01/03/24 01/03/24 01/03/24 Range/Units 05:27 05:27 05:27 RBC 2.89 L (4.70-6.10) 10^6/uL Reticulocyte % (Auto) 5.83 H (0.5-2.3) % Absolute Retic 0.169 H (0.020-0.110) 10^6/uL POC Whole Bld Glucose (70 - 100) mg/dL Iron 24 L (50-212) ug/dL TIBC 447 (250-450) ug/dL % Saturation 5 L (20-50) % Transferrin 319 (203-362) mg/dL Lactate Dehydrogenase 181 (140-271) IU/L Vitamin B12 (180-914) pg/mL Folate (5.90 - >24.8) ng/mL 01/03/24 01/02/24 01/02/24 Range/Units 05:27 20:51 17:12 RBC (4.70-6.10) 10^6/uL Reticulocyte % (Auto) (0.5-2.3) % Absolute Retic (0.020-0.110) 10^6/uL POC Whole Bld Glucose 181 H 111 H (70 - 100) mg/dL Iron (50-212) ug/dL TIBC (250-450) ug/dL % Saturation (20-50) % Transferrin (203-362) mg/dL Lactate Dehydrogenase (140-271) IU/L Vitamin B12 651 (180-914) pg/mL Folate 38.4 (5.90 - >24.8) ng/mL 01/02/24 Range/Units 11:25 RBC (4.70-6.10) 10^6/uL Reticulocyte % (Auto) (0.5-2.3) % Absolute Retic (0.020-0.110) 10^6/uL POC Whole Bld Glucose 201 H (70 - 100) mg/dL Iron (50-212) ug/dL TIBC (250-450) ug/dL % Saturation (20-50) % Transferrin (203-362) mg/dL Lactate Dehydrogenase (140-271) IU/L Vitamin B12 (180-914) pg/mL Folate (5.90 - >24.8) ng/mL Sepsis Event Note (H) - Evaluation Current Stage of Sepsis: Ruled out
--- NOTE | 2024-01-03 11:22 | DISCHARGE SUMMARY ---
Discharge Summary Admit Date: 01/01/24 Discharge Date: 01/03/24 Discharging Provider: Dr. Razia Bender Condition at Discharge: Stable Discharge Disposition: Home Health Service Discharge Facility Name: Home - DIAGNOSES Admission Diagnoses: Stroke Pt admitted for right sided GA, blurry vision and leg weakness. Considering TIA vs CVA vs migraine. CT of brain and CTA of head and neck showed no acute changes. No signs of a hemorrhagic or ischemic stroke. MRI of brain shows subacute infarction involving left [employer] territory. MRA shows no significant intra cranial abnormality, no significant abnormality seen where left [employer] infarction is. Trans thoracic echo results pending. 01-03-24 Physical therapy evaluated pt, he is able to walk some stairs but needed some assistance, could benefit from a walker at home. On evaluation pt was unstable on feet, had some right sided chronic facial droop which is baseline for him per . He also has some slight right sided weakness with right arm and leg with slower movement. Pt and report lots of family support at home eager to care for pt's needs. Physical and occupational therapy will be treating pt at home. Recommend f/u with PCP to continue to monitor recovery. Anemia Dr. Morgan (gen surg) came and told pt he had macrocytic anemia. Labs 01-02-24 RBC 2.75, Hgb 8.1, MCV 102.2 RDH 16.4, PT 13.5, INR 1.3. Iron 24. Colonoscopy is no longer recommended by surgeon due to low suspicion of bleed causing anemia. Pt denies any CP, SOB, weakness. 01-03-24 Pt informed he can start his ASA 81mg and Xarelto 20mg at home after discharge. Pt is to stop drinking alcohol during investigation of anemia cause. Iron level is low. Will have pt take irone supplement and vitamin C at home. There is suspicion for myelodisplastic syndrome. Recommend f/u with pcp. Plan: -avoid alcoholic drinks for now. -Take multi vitamin which should have Folate and vitamin B12. Vitamin B12 level 651 01-02-24. Atrial fibrillation Pt found to be in A-fib in ER. Stable. 01-03-24 no palpitations, CP, light headedness, dizziness, SOB during stay. Will continue Xarelto tomorrow. HTN (hypertension) HTN meds were held during ICU stay due to left [employer] subacute infarc. Pt can continue medications once home. HLD (hyperlipidemia) Being managed with Rosuvastatin. Pt did not take his medication during the co urse of ICU stay. Will restart medication at home. DM2 (diabetes mellitus, type 2) Taking metformin 1,000mg BID. Pt did not take his medication during the course of ICU stay. Will restart medication at home. - HPI History of Present Illness: 83 YOM with a Hx of Afib, HTN, HLD, DM2 presents to the ER with R sided GA, Right eye blurred vision, right leg weakness first noted yesterday evening. Pt had gotten home from a meeting at around 2130, states he sat down for a short while and a short while after felt a GA on the right side, as well as some right side blurriness, then when he went to get up his right leg felt weak which is abnormal for him. In ED his weakness and GA resolved but continued to have slight GA and some blurry vision. No recent injury or falls. No Hx of stroke in the past. He reports that he has been off of his daily ASA 81mg and Xarelto for the past 5 days because he is suppose to have a scope done soon, gen surgeon has it scheduled in january but hoping to get him in sooner. Pt reports some fatigue sx for the past couple weeks now, PCP started him on iron supplement. He also states his stool has been darker lately, denies coffee or bright red in appearance. No recent fever, chills, CP, SOB, abd pain. Pt has had nml brain CT and CTA of head and neck. MRI ordered. - HOSPITAL COURSE Hospital Course: 83 YOM admitted for R GA, blurry vision and leg weakness found to have left [employer] sub acute infarction in MRI. CT of brain and CTA of head and neck showed no acute changes. Pt was admitted for observation, sx improved during stay, only having mild right frontal GA. During stay labs showed macrocytic anemia possibly from alcohol use. Labs 2--24 RBC 2.75, Hgb 8.1, MCV 102.2 RDH 16.4, PT 13.5, INR 1.3. Labs 2-15-24 RBC 2.89, reticulocute 5.83, vitamin B12 651, folate 38.4, calcium 24, transferrin 319. Iron 24. Will Rx iron supplement and vitamin C to take at home for anemia. PT evaluation 01-03-24, pt is able to walk stairs, minimal assistance needed but could benefit from walker. Physical and occupational therapy will be visiting pt at home for treatment. F/u with PCP. - ALLERGIES Allergies/Adverse Reactions: Allergies Allergy/AdvReac Type Severity Reaction Status Date / Time lisinopril Allergy Unknown Verified 01/01/24 23:20 - MEDICATIONS Home Medications: Ambulatory Orders Medication Instructions Recorded Confirmed Losartan [Cozaar] 100 mg ORAL DAILY 11/01/15 01/02/24 hydroCHLOROthiazide 25 mg ORAL DAILY 11/01/15 01/02/24 [Hydrochlorothiazide] Calcium Carbonate [Calcium] 500 mg PO QPM 10/11/21 01/02/24 Cholecalciferol [Vitamin D3] 6,000 unit PO DAILY 10/11/21 01/02/24 Levothyroxine Sodium [Synthroid] 50 mcg PO DAILY 10/11/21 01/02/24 Vitamin B Complex 1 each PO DAILY 10/11/21 01/02/24 metFORMIN [Glucophage] 1,000 mg PO BIDWM 10/11/21 01/02/24 Aspirin EC [Ecotrin] 81 mg PO DAILY 01/02/24 01/02/24 Rivaroxaban [Xarelto] 20 mg PO HS 01/02/24 01/02/24 Rosuvastatin Calcium [Crestor] 5 mg PO DAILY PM 01/02/24 01/02/24 Bacitracin Zinc Oint [Bacitracin] 1 packet TOP BID PRN packet 01/03/24 Ferrous Gluconate 240 mg PO DAILY #90 tablet 01/03/24 - PHYSICAL EXAM AT DISCHARGE General Appearance: positive: No acute distress Eyes Bilateral: positive: PERRL, EOMI ENT: positive: ENT inspection nml Neck: positive: Nml inspection Respiratory: positive: Chest non-tender, No respiratory distress, Breath sounds nml Cardiovascular: positive: Irregularly irregular. negative: Regular rate & rhythm Skin: positive: Color nml, Warm, Dry, Cyanosis Neurologic/Psychiatric: positive: Oriented x3 - LABS Result Diagrams: 01/02/24 04:34 01/02/24 04:34 - SEPSIS Current Stage of Sepsis: Ruled out
--- NOTE | 2024-01-03 12:28 | Discharge Plan ---
Discharge Plan Problem Reviewed?: Yes Disposition: Home Health Service Condition: Stable Prescriptions: Ferrous Gluconate 240 mg PO DAILY #90 tablet Diet: Regular Activity Restrictions: Activity as Tolerated Shower Restrictions: No Driving Restrictions: No Assistance Devices: Walker Health Concerns: You are a patient who has high blood pressure, high cholesterol, diabetes, and chronic atrial fibrillation which is an irregularly irregular heart rate that can lead to increased risk of stroke. You take a blood thinner in the form of Xarelto as well as an aspirin to reduce your risk of stroke and heart attack. You had to stop your Xarelto for the last few days in preparation for possible colonoscopy for iron deficiency anemia. But after the surgeon saw your records, he feels that your problem may be something else. He does not feel you are a candidate for colonoscopy at this time. Unfortunately while you are off Xarelto, you began developing symptoms of a stroke and came to our emergency room. We consulted with [facility] ([place], [place]) neurology for stroke management and they did not feel you are a candidate for the clot busting drug that would give with someone who has a large clot in one of the arteries of the brain. The initial CAT scan of your head is negative. The angiogram of your brain shows you to hav e a small slightly blocked artery in the left back brain circulation called the posterior cerebellar artery. The MRI, unfortunately, did show a small stroke in the left back brain as well. The artery involved was the left posterior cerebellar artery. The manifestation is being unsteady on your feet, slowed thought process with regards to word finding and calculation, but no paralysis. You are having issues with usage of your right arm and right leg but you are not paralyzed. Your swallowing is normal. It is interesting to note that you have a chronic right eyelid problem, and a slight asymmetry of your lips. So we were trying to figure out if this was a manifestation of your stroke. But you explained to us that your face always looks this way. Plan of Treatment: You need to resume your Xarelto tomorrow on January 04. You can also resume your aspirin. The other treatment is to keep your blood pressure down and you will resume your normal blood pressure medicines. When you were first admitted, we allow permissive high blood pressure for the first 2 days. So you did not get a lot of your blood pressure medicines while here. We want your blood pr essure to be a little bit on the high side the first 2 days. Please see your primary care provider in follow-up in the next 1 to 2 weeks I am ordering home health physical therapy and Occupational Therapy to help you recover. They will contact you as to when they will start going to your house to help you with therapy At this time the surgeon does not believe you need a colonoscopy. But you are iron deficient so I will be sending you home with an iron tablet. Please take a vitamin C tablet 500 mg with every iron tablet you take. Both of them are once a day. You should let your doctor know that your B12, folate vitamin levels are normal. This may not mean much to you, but tell him that your reticulocyte count was slightly elevated and he may need to do an evaluation for hemolytic anemia. If that evaluation is negative, you may need a bone marrow biopsy to figure out why your red cells are so large. You also probably drink alcohol more than you realize. I would like you to stop all alcohol intake for the next 3 months. When you resume drinking, maybe 1 drink on Sunday is adequate. Care Goals: To complete physical therapy and recover from your stroke deficits. To make sure that your heart rate is controlled and you are reducing your risk of recurrent stroke by making sure you are compliant with your medications. And eventually to find out why your anemia is present. Assessment: Patient is oriented to person, place, slightly confused with time. Slightly psychomotor slowing and balance issues. Follow-Up Care: Home Health - PT, Home Health - OT No Smoking: If you smoke, Please STOP! Call for help.
[2024-01-03 14:09] VITALS: BP 140/69
== END 2024-01-03 13:02 | disposition home health service (06) ==
LOC: ED 22:57 → MS2 01-02 00:22
PROVIDERS: ADMIT Internal Medicine; ATTEND Specialist
DX: I63.532 Cerebral infarction due to unspecified occlusion or stenosis of left posterior cerebral artery (principal); R29.810 Facial weakness; H53.8 Other visual disturbances; R26.81 Unsteadiness on feet; G81.91 Hemiplegia, unspecified affecting right dominant side; D53.9 Nutritional anemia, unspecified; I48.91 Unspecified atrial fibrillation; I10 Essential (primary) hypertension; E11.9 Type 2 diabetes mellitus without complications; E78.00 Pure hypercholesterolemia, unspecified; I25.10 Atherosclerotic heart disease of native coronary artery without angina pectoris; E03.9 Hypothyroidism, unspecified; R29.700 NIHSS score 0; I49.3 Ventricular premature depolarization; Z79.01 Long term (current) use of anticoagulants; Z79.82 Long term (current) use of aspirin; Z79.84 Long term (current) use of oral hypoglycemic drugs; Z79.890 Hormone replacement therapy; Z79.899 Other long term (current) drug therapy; Z95.5 Presence of coronary angioplasty implant and graft; Z96.649 Presence of unspecified artificial hip joint
CPT/HCPCS: 36415; 70450; 70496; 70498; 70544; 70551; 80053; 82607; 82746; 83540; 83615; 83690; 84466; 84484; 85025; 85045; 85610; 85730; 93005; 93307; 97161; 97530; 99285; A9270; G0378; J1815; Q9967

== ENCOUNTER 2024-02-07 10:58 | Outpatient (CLI) | payer MEDICARE, OTHER | END 2024-02-07 10:59 | disposition EMS.NT | LOC: EMS 10:58 | DX: I10 Essential (primary) hypertension (principal) ==